=== PATIENT | male | born 1980 | race Caucasian/White ===

== ENCOUNTER 2016-07-13 16:16 | Outpatient (RCR) | payer BC ==
[~2016-07-13 16:16] MED LIST: CEPH-507 PO; HYDR-3876 PO
--- OUTSIDE RECORDS SUMMARY | 2016-07-13 16:21 | XMS REPORT | Continuity of Care Document ---
Author Author [facility] Organization [facility] Address Unknown Phone Unavailable Care Team Providers [employer] Sales Engineer Name Role Phone NO, LOCAL PHYSICIAN PCP Unavailable Insurance Providers Payer Name Policy Number Subscriber Name Relationship [facility] [id number] Prashanth [place] 01 Advance Directives Directive Response Recorded Date/Time Advance Directives No 04/23/16 7:45am Resuscitation Status Full Code 04/23/16 7:45am Problems No problem information available. Medications Current Home Medications Medication Dose Units Route Directions Days/Qty Instructions Start Date Cephalexin 500 Mg 500 Mg Oral Twice A Day 10 04/23/16 Hydrocodone/Acetaminophen 1 Each 1 Each Oral Every 4HRS as needed for Pain 30 04/23/16 Social History Social History Problem Response Recorded Date/Time Alcohol Use Regular Use 04/23/2016 7:45am Recreational Drug Use No 04/23/2016 7:45am Recent Foreign Travel No 04/23/2016 7:45am Recent Infectious Disease Exposure No 04/23/2016 7:45am Smoking Status Former Smoker 04/23/2016 7:45am Type Used Cigarettes 04/23/2016 1:58pm Recent Hopitalizations No 04/23/2016 7:45am Query Response Start Date Stop Date Smoking Status Former Smoker Hospital Discharge Instructions Patient Instructions Physician Instructions New, Converted, or Re-newed RX: RX on Chart Plan Please make appointment to been seen in office in 2 weeks. Rest till then. Come to office next Saturday to [place] [email or web address] Tomorrow start showers, no bath Keep bowels soft and moving Increase oral fluids for 48 hours and then as needed. Diet and Activity as tolerated. If questions or concerns contact your physician Or seek help at emergency department. Plan of Care Discharge Date 04/23/16 11:40am Instructions/Education Provided ANESTHESIA INSTRUCTIONS POSTOP Prescriptions See Medication Section Functional Status No functional status results. Allergies, Adverse Reactions, Alerts No known allergies. Immunizations No immunization records. Vital Signs Acute Vital Signs Vital Response Date/Time Temperature (Fahrenheit) 97.5 degrees F (97.6 - 99.5) 04/23/2016 11:40am Temperature (Calculated Celsius) 36.94858 degrees C (36.4 - 37.5) 04/23/2016 11:15am Temperature Source Temporal 04/23/2016 11:40am Pulse Rate (adult) 57 bpm (60 - 90) 04/23/2016 11:40am Respiratory Rate 19 bpm (12 - 24) 04/23/2016 11:40am O2 Sat by Pulse Oximetry 98 % (88 - 100) 04/23/2016 11:40am Blood Pressure 140/88 mm Hg 04/23/2016 11:40am Blood Pressure Mean 101 mm Hg 04/23/2016 7:45am Pain Numeric Pain Scale 0-No Pain 04/23/2016 11:40am Pain Intensity 0 04/23/2016 11:15am Height (Feet) 6 feet 04/23/2016 7:45am Height (Inches) 1.00 inches 04/23/2016 7:45am Height (Calculated Centimeters) 185.933121 cm 04/23/2016 7:45am Weight (Pounds) 178 pounds 04/23/2016 7:45am Weight (Ounces) 0.0 oz 04/23/2016 7:45am Weight (Calculated Grams) 25531.44 gm 04/23/2016 7:45am Weight (Calculated Kilograms) 80.889592 kilograms 04/23/2016 7:45am Calculated BMI 23.5 04/23/2016 7:45am Results No known relevant diagnostic tests, laboratory data and/or discharge summary. Procedures Procedure Status Date Provider(s) Ligation of spermatic veins Completed 04/23/16 RACQUEL TREVINO MD Encounters Encounter Location Arrival/Admit Date Discharge/Depart Date Attending Provider Departed [facility] 04/23/16 7:02am 11:40am RACQUEL TREVINO MD Departed Clinic [facility] 04/19/16 5:36am 04/19/16 9: 49am RACQUEL TREVINO MD
== END 2016-10-11 | disposition home or self-care (01) ==
LOC: LAB 16:16
PROVIDERS: ATTEND Urology
DX: I86.1 Scrotal varices (principal)
CPT/HCPCS: 89320